=== PATIENT | male | born 1980 | race Caucasian/White ===

== ENCOUNTER → 2024-05-03 17:44 | Outpatient (REF) | payer BC, SELFPAY | LOC: MRI 3T 17:44 | PROVIDERS: ATTENDING PHYSICIAN Specialist; FAMILY PHYSICIAN Student in an Organized Health Care Education/Training Program | DX: R97.20 Elevated prostate specific antigen [PSA] (principal) | CPT/HCPCS: 72197; A9575 ==

== ENCOUNTER 2024-05-06 06:19 | Day surgery (SDC) | payer BC, SELFPAY | END 2024-05-06 14:46 | disposition home or self-care (01) | LOC: GI 06:19 | PROVIDERS: ATTENDING PHYSICIAN Internal Medicine Gastroenterology | DX: K62.5 Hemorrhage of anus and rectum (principal); K51.911 Ulcerative colitis, unspecified with rectal bleeding; K64.8 Other hemorrhoids | CPT/HCPCS: 45380; 88305 ==

== ENCOUNTER 2024-08-07 06:07 | Day surgery (SDC) | payer BC, SELFPAY ==
[2024-07-24 09:01] LABS: Hematocrit 42.2 % (39.0-52.0); Hemoglobin 14.9 g/dL (13.0-18.0); Mean Corp Hgb Conc. 35.3 g/dL (33.0-37.0); Mean Corpuscular Hgb 31.7 pg (27.0-31.0); Mean Corpuscular Volume 89.8 fL (80.0-94.0); Mean Platelet Volume 9.9 fL (7.4-10.4); Platelet Count 219 10^3/uL (130-400); Red Cell Dist. Width 12.1 % (11.5-14.5); White Blood Cell Count 6.6 10^3/uL (4.8-10.8)
[2024-07-24 09:38] LABS: Blood Urea Nitrogen 20 mg/dl (9-20); Calcium 9.8 mg/dl (8.4-10.2); Carbon Dioxide 25 mmol/L (22-30); Chloride 99 mmol/L (98-107); Glucose 90 mg/dl (70-99); Potassium 3.7 mmol/L (3.5-5.1); Sodium 138 mmol/L (135-145); eGFR > 60.00
[2024-07-24 14:10] VITALS: BMI 30.1
[2024-08-07] VITALS (26 sets, daily range): BP systolic 78–137; BP diastolic 63–88; BMI 30.1
[2024-08-07] MEDS: NORMOSOL-R/PLASMALYTE-A 1000 IV ×2 (06:45→13:22)
[2024-08-07] MEDS: NEOMYCIN ENEMA 1 BOTTLE RECTAL (06:49)
[2024-08-07] MEDS: TYLENOL 1000 MG PO (07:10)
[2024-08-07] MEDS: DILAUDID 0.5 MG IV (11:09)
[2024-08-07] MEDS: VALIUM INJECTION 5 MG IV (11:39)
[2024-08-07] MEDS: DETROL LA 4 MG PO (13:25)
[2024-08-07] MEDS: POLYSPORIN/DOUBLE ANTIBIOTIC TOPICAL ×2 (16:16→21:55)
[2024-08-07] MEDS: TORADOL 15 MG IV ×2 (16:18→21:57)
[2024-08-07] MEDS: TYLENOL 650 MG PO (16:23)
[2024-08-07] MEDS: COLACE 100 MG PO (17:55)
[2024-08-07] MEDS: MORPHINE SULFATE 4 MG IV ×3 (17:55→22:59)
[2024-08-07] MEDS: POLYSPORIN OINTMENT 1 APPLIC TOPICAL (21:56)
[2024-08-08] MEDS: NORMOSOL-R/PLASMALYTE-A 1000 IV (01:55)
[2024-08-08] MEDS: TORADOL 15 MG IV (03:46)
[2024-08-08] MEDS: NORCO 5/325 1 TABLET PO (03:56)
[2024-08-08 07:00] VITALS: BP 105/71
[2024-08-08 07:40] LABS: Hematocrit 36.9 % (39.0-52.0); Mean Corp Hgb Conc. 35.2 g/dL (33.0-37.0); Mean Corpuscular Hgb 32.1 pg (27.0-31.0); Mean Corpuscular Volume 91.1 fL (80.0-94.0); Mean Platelet Volume 9.9 fL (7.4-10.4); Platelet Count 194 10^3/uL (130-400); Red Blood Cell Count 4.05 10^6/uL (4.70-6.10); Red Cell Dist. Width 12.1 % (11.5-14.5); White Blood Cell Count 8.3 10^3/uL (4.8-10.8)
[2024-08-08 08:10] LABS: Blood Urea Nitrogen 20 mg/dl (9-20); Calcium 9.1 mg/dl (8.4-10.2); Carbon Dioxide 27 mmol/L (22-30); Chloride 101 mmol/L (98-107); Estimated Creatinine Clearance > 125 ml/min; Glucose 97 mg/dl (70-99); Potassium 3.9 mmol/L (3.5-5.1); Sodium 137 mmol/L (135-145); eGFR > 60.00
[2024-08-08] MEDS: VALIUM INJECTION 5 MG IV (08:28)
[2024-08-08] MEDS: COLACE 100 MG PO (08:28)
--- NOTE | 2024-08-08 09:58 | W.PN.URO.CBU ---
Today's Communication / Plan
-
discharge
Assessment / Plan
-
stable
Diagnosis
-
Date of Service: August 08, 2024
-
Patient Diagnosis: prostate cancer s/p robotic radical prostatectomy
Post Op Day: 1
Subjective
-
expected belly ache
has ambulated
Objective
-
Vital Signs
Temp Pulse Resp BP Pulse Ox
97.6 F 78 16 105/71 96
08/08/24 07:00 08/08/24 07:00 08/08/24 07:00 08/08/24 07:00 08/08/24 07:00
Intake and Output
08/07/24 08/08/24 08/09/24
06:59 06:59 06:59
Intake Total 2210 / 2210
Output Total 1650 / 1650
Balance 560 / 560
Intake:
Oral fluids 410 / 410
IV fluids (Total) 1800 / 1800
Normosol 900 / 900
Output:
Urine, Perez 1650 / 1650
Laboratory Results
08/08/24 06:52
08/08/24 06:52
Physical Exam
-
General - well developed, well nourished, no acute distress
Chest - clear bilaterally
Abdomen - soft, non-tender, positive bowel sounds, no CVAT, no incisional pain or distention
Genitalia - Perez draining chong urine
Skin - warm & dry with no rash
Neuro - AOx3, no motor deficits
Extremities - no clubbing, no cyanosis, no edema
Dressings - clean, dry, intact
Care Review
Data Reviewed
Discussed with: Family ( at bedside)
[2024-08-08] MEDS: POLYSPORIN/DOUBLE ANTIBIOTIC 1 APPLIC TOPICAL (10:08)
--- NOTE | 2024-08-08 10:30 | CM ---
CM reviewed medical records. CM is confirming home care agency.
--- NOTE | 2024-08-08 10:49 | CM ---
CM met with patient and updated that referral was sent to [facility]. Patient is enthusiatic about discharge and is agreeable to [facility].
CM updated [facility] liaison.
CM updated bedside RN
PLAN: Home with [facility].
[2024-08-08] MEDS: TORADOL IV (11:08)
[2024-08-08] MEDS: COLACE PO (11:08)
--- NOTE | 2024-08-08 12:07 | VNURNOTE ---
Home health liaison met with patient and spouse Carri to discuss [facility] services, visit scheduling/frequency, homebound status and pet policy. Patient agreeable to [facility] services and understands home visits will be 1-2 times a week to assess and teach
medical management. Patient has jasso supplies at bedside and is aware to take them home at discharge, and be able to empty his jasso bag. Patient aware a visiting nurse will contact him for start of care within 1-2 days after discharge from .
[facility] Referral completed in care port
[2024-08-08] MEDS: TYLENOL 650 MG PO (12:44)
== END 2024-08-08 12:30 | disposition home or self-care (01) ==
LOC: SDS 06:07
PROVIDERS: ATTENDING PHYSICIAN Specialist; FAMILY PHYSICIAN Student in an Organized Health Care Education/Training Program
DX: C61 Malignant neoplasm of prostate (principal)
CPT/HCPCS: 55866; 88307; 88309; 36415; 80048; 85027; 86850; 86900; 86901; 93005